=== PATIENT | male | born 1960 | race Caucasian/White ===

== ENCOUNTER 2023-09-22 11:54 | Emergency (ER) | payer OTHER, SELFPAY ==
[2023-09-22 12:12] VITALS: BP 141/84; PULSE 59; RESP 16; TEMP 36.6; O2SAT 100; BMI 21.6
--- NOTE | 2023-09-22 12:44 | ED_ITS ---
HPI - Wound/Laceration General Chief Complaint: Laceration/Wound Stated Complaint: Cut index finger Left hand Time Seen by Provider: 09/22/23 12:03 History of Present Illness HPI narrative: This 63-year-old male comes in with a laceration to the distal portion of his left index finger. He presented to urgent care but was sent here because the laceration did involve his fingernail. The patient states that he is uncertain of his tetanus status. This laceration occurred with a very sharp razor blade that cut through a portion of his fingernail and surrounding tissue. Related Data Home Medications Medication Instructions Recorded Confirmed No Known Home Medications 09/22/23 09/22/23 Allergies Allergy/AdvReac Type Severity Reaction Status Date / Time No Known Drug Allergies Allergy Verified 09/22/23 12:16 Review of Systems Status of ROS: Reports: 10 or more systems reviewed and unremarkable except as noted in History and below Narrative: Constitutional: No fevers, no weight gain or loss. Eyes: No discharge. No vision changes. HENT: No congestion, no sore throat, no ear pain. Cardiovascular: No chest pain, no palpitations. Respiratory: No shortness of breath, no wheezes, no cough. Gastrointestinal: No abdominal pain, no vomiting, no diarrhea. Genitourinary: No dysuria, no hematuria. Musculoskeletal: Normal range of motion. Skin: No rashes, no pruritis. Neurological: No dizziness, weakness, sensory change, speech change. Endo/Heme/Allergies: No bruising or bleeding. No polydipsia. Pysch: no suicidality, no anxiety, no insomnia. All other systems reviewed and are negative. Exam Narrative: Exam Narrative: Constitutional: Well-developed, well-nourished, no acute distress. HEENT: Normocephalic, atraumatic. Neck: Normal range of motion. Nontender. Supple. Heart: Intact distal pulses. Lungs: No chest discomfort. No wheezes, rhonchi, or rales. Abdomen: Nontender. Back: Normal range of motion. Extremities: Normal range of motion. Left index finger has a 3 cm laceration extending from the D IP joint area across the thenar aspect of his fingernail. Skin: Intact. No rash. Warm. No erythema or pallor. Neurologic: No altered sensation. No weakness. Alert and oriented. Psychiatric: No suicidality. No anxiety or depression. No insomnia. Nursing notes and vitals signs are reviewed. Const: Vital Signs, click to edit/add: Vital Signs - 24 hr 09/22/23 12:12 Temperature 98 F Pulse Rate [Pulse Oximeter] 59 L Respiratory Rate 16 Blood Pressure [Ri ght Upper Arm] 141/84 H Pulse Oximetry 100 Oxygen Delivery Me thod Room Air Course Vital Signs Vital signs: Initial Vital Signs Temperature 98 F 09/22/23 12:12 Temperature Source Temporal Artery Scan 09/22/23 12:12 Pulse Rate 59 L 09/22/23 12:12 Respiratory Rate 16 09/22/23 12:12 Blood Pressure 141/84 H 09/22/23 12:12 Blood Pressure Mean 103 09/22/23 12:12 Blood Pressure Position Supine 09/22/23 12:12 Pulse Oximetry 100 09/22/23 12:12 Oxygen Delivery Method Room Air 09/22/23 12:12 Vital Signs Temperature 98 F 09/22/23 12:12 Pulse Rate 59 L 09/22/23 12:12 Respiratory Rate 16 09/22/23 12:12 Blood Pressure 141/84 H 09/22/23 12:12 Pulse Oximetry 100 09/22/23 12:12 Oxygen Delivery Method Room Air 09/22/23 12:12 Temperature 98 F 09/22/23 12:12 Pulse Rate 59 L 09/22/23 12:12 Respiratory Rate 16 09/22/23 12:12 Blood Pressure 141/84 H 09/22/23 12:12 Pulse Oximetry 100 09/22/23 12:12 Oxygen Delivery Method Room Air 09/22/23 12:12 MDM - Wound/Laceration MDM Narrative Medical decision making narrative: This patient has a laceration to his left index finger. This occurred with a very sharp razor blade that cut through the thenar aspect of his nail. This skin edges and the edges of the nail are very well approximated. I did discuss options for wound repair and recommended Dermabond. Patient is agreeable to this plan and Dermabond was applied with excellent results. The patient's last tetanus administration was about 9 years ago. He did receive an updated vaccination today. Instructions were given regarding wound care. Discharge Plan Discharge Clinical Impression: Laceration Patient Disposition: Home, Self-Care Condition: Stable Additional Instructions: Keep wound clean and dry. Activity as tolerated. Follow up with MD return if worsening. Prescriptions: No Action No Known Home Medications Stand Alone Forms: Giferent Info Instructions
[2023-09-22] MEDS: TETANUS/DIPHTH/PERTUSSIS 0.5 ML SYRINGE IM (12:58)
[2023-09-22 13:13] VITALS: BP 140/94; PULSE 61; RESP 16; O2SAT 99
== END 2023-09-22 13:16 | disposition home or self-care (01) ==
LOC: ED 12:53
PROVIDERS: Emergency Provider Emergency Medicine Emergency Medical Services; PCP Pediatrics
DX: S61.311A Laceration without foreign body of left index finger with damage to nail, initial encounter (principal); W26.9XXA Contact with unspecified sharp object(s), initial encounter
CPT/HCPCS: 12002; 90471; 90715; 99283; 99284